=== PATIENT | female | born 1965 | race American Indian/Alaskan Native ===

== ENCOUNTER 2016-07-25 07:56 | Emergency (ER) | payer MEDICAID ==
[2016-07-25 08:14] VITALS: RESP 16; TEMP 97; BMI 28.7
--- NOTE | 2016-07-25 08:26 | ED PDOC ---
HPI: General Adult Time Seen by Provider: 07/25/16 08:21 Chief Complaint (Nursing): Abdominal Pain Chief Complaint (Provider): abdominal pain History Per: Patient History/Exam Limitations: no limitations Additional Complaint(s): 51yo female w/ Hx GERD, gastritis, taking Prilosec with intermittent upper abdominal pain over 2 months. Also reports watery, non-bloody diarrhea which typically occurs 20 minutes after a meal. Denies Hx abdominal surgery, endoscopy. Pain is not radiating to the back or chest. PMD: Vlad Past Medical History Reviewed: Historical Data, Nursing Documentation, Vital Signs Vital Signs: Last Vital Signs Temp 97.0 F L 07/25/16 08:13 Pulse 82 07/25/16 08:52 Resp 16 07/25/16 08:52 BP 142/99 H 07/25/16 08:52 Pulse Ox 100 07/25/16 08:52 - Medical History PMH: Asthma, Back Problems, Gastritis, GERD, HTN, Chronic Pain (Sciatica) Denies: Chronic Kidney Disease - Surgical History Surgical History: No Surg Hx - Family History Family History: States: Hypertension - Social History Current smoker - smoking cessation education provided: No Alcohol: Occasional - Immunization History Hx Tetanus Toxoid Vaccination: No Hx Influenza Vaccination: No Hx Pneumococcal Vaccination: No - Home Medications Home Medications: Ambulatory Orders Medication Instructions Recorded Lisinopril [Zestril] 20 mg PO DAILY 11/05/14 Albuterol HFA [Ventolin HFA 90 2 puff IH [id number] #1 puff 01/08/15 mcg/actuation (8 g)] Fluticasone/Salmeterol 100/50 1 puff INH BID #1 puff 03/20/15 [Advair Diskus 100/50] Albuterol Sulfate [Proair Hfa] 0.09 mg IH Q6H PRN #2 inh 01/31/16 Albuterol HFA [Ventolin HFA 90 1 - 2 puff IH Q4H PRN #1 bottle 02/15/16 mcg/actuation (8 g)] Hydrocortisone 2.5% 1 apful TP BID 5 Days 07/25/16 Ondansetron [Zofran] 4 mg PO Q6H PRN #10 tab 07/25/16 Ranitidine HCl [Zantac] 150 mg PO BID #20 tablet 07/25/16 - Allergies Allergies/Adverse Reactions: Allergies Allergy/AdvReac Type Severity Reaction Status Date / Time mold Allergy URTICARIA Verified 01/02/16 07:24 dust Allergy URTICARIA Uncoded 10/11/15 10:25 Review of Systems ROS Statement: Except As Marked, All Systems Reviewed And Found Negative Constitutional: Negative for: Fever Cardiovascular: Negative for: Chest Pain Respiratory: Positive for: Cough Gastrointestinal: Positive for: Nausea, Abdominal Pain, Diarrhea. Negative for : Vomiting Musculoskeletal: Negative for: Back Pain Physical Exam - Reviewed Nursing Documentation Reviewed: Yes Vital Signs Reviewed: Yes - Physical Exam Appears: Positive for: Well, Non-toxic, No Acute Distress Head Exam: Positive for: ATRAUMATIC, NORMAL INSPECTION, NORMOCEPHALIC Skin: Positive for: Warm, Dry Eye Exam: Positive for: EOMI, PERRL Cardiovascular/Chest: Positive for: Regular Rate, Rhythm Respiratory: Positive for: Other (mildly diminished breath sounds). Negative for: Rales, Rhonchi, Wheezing Gastrointestinal/Abdominal: Positive for: Soft, Tenderness (mid abdomen & right upper quadrant). Negative for: Mass, Guarding, Rebound - Laboratory Results Result Diagrams: 07/25/16 09:04 07/25/16 09:04 - ECG O2 Sat by Pulse Oximetry: 99 Medical Decision Making Medical Decision Makin Will rule out gallstone. US Abdomen, CXR, Labs, IV Fluids, Bentyl, Toradol, Zofran ordered. 0950 US Abdomen IMPRESSION: Multiple probable small right renal cysts are evident measuring up to 1.0 cm in the midpole. Echogenic focus within the midpole measuring approximately 6 mm presumed to reflect nonobstructing calculus. No hydronephrosis. Borderline hepatomegaly. 1215 CT Abd/pel IMPRESSION: No acute findings related to/accounting for the clinical presentation. No significant interval change compared to the prior examination(s). 1220 Reevaluation: Patient feeling better. Will discharge with Zantac. Discussed CT, US and lab findings. Follow up with PMD. Disposition - Clinical Impression Clinical Impression: Abdominal pain, Asthma, Eczema - Disposition Referrals: Bolivar Hernandez MD [Staff Provider] - Disposition: Routine/Home Disposition Time: 12:20 Condition: STABLE Additional Instructions: See GI doctor for further testing. Return to ER for any new or worsening symptoms/ Prescriptions: Hydrocortisone 2.5% 1 apful TP BID 5 Days Ondansetron [Zofran] 4 mg PO Q6H PRN #10 tab PRN Reason: Nausea/Vomiting Ranitidine HCl [Zantac] 150 mg PO BID #20 tablet Instructions: Asthma (ED), Acute Abdominal Pain (ED) Forms: [employer] (Spanish), [facility] ED School/Work Excuse Additional Comments - Additional Comments Additional Comments: Scribe Attestation Documented by Musa Marino acting as a scribe for Virginia Weathers DO. Provider Attestation: All medical record entries made by the Scribe were at my direction and personally dictated by me. I have reviewed the chart and agree that the record accurately reflects my personal performance of the history, physical exam, medical decision making, and the department course for this patient. I have also personally directed, reviewed, and agree with the discharge instructions and disposition.
[2016-07-25] MEDS ORDERED: Sodium Chloride 0.9% 1,000 ML IV STA (08:27)
[2016-07-25] MEDS ORDERED: Albuterol-Ipratrop 3 mg / 0.5 (3 ml) UD INH STA (08:27)
[2016-07-25 08:52] VITALS: BP 142/99; PULSE 82
[2016-07-25 09:06] LABS: RBC URINE 5 /hpf (0-3); URINE BILIRUBIN NEGATIVE (NEGATIVE); URINE BLOOD NEGATIVE (NEGATIVE); URINE COLOR YELLOW (YELLOW); URINE GLUCOSE (UA) NEG (Normal); URINE KETONE NEGATIVE (NEGATIVE); URINE LEUKOCYTE ESTERASE NEG Leu/uL (Negative); URINE PROTEIN 30 mg/dL (NEGATIVE); URINE UROBILINOGEN 0.2-1.0 mg/dL (0.2-1.0); WBC URINE 1 /hpf (0-5)
[2016-07-25 09:08] LABS: BASO % 0.5 % (0.0-2.0); EOS # 0.1 K/uL (0.0-0.7); EOS % 1.7 % (0.0-4.0); HEMATOCRIT 36.2 % (34.0-47.0); LYMPH # 2.1 K/uL (1.0-4.3); LYMPH % 38.1 % (20.0-40.0); MEAN CELL VOLUME 84.4 fl (81.0-99.0); MEAN CORPUSCULAR HEMOGLOBIN 28.1 pg (27.0-31.0); MEAN CORPUSCULAR HGB CONC 33.4 g/dL (33.0-37.0); MEAN PLATELET VOLUME 7.3 fl (7.2-11.7); MONO # 0.5 K/uL (0.0-0.8); MONO % 9.2 % (0.0-10.0); NEUT # 2.8 K/uL (1.8-7.0); NEUT % 50.5 % (50.0-75.0); NRBC % 0.1 % (0.0-0.0); WHITE BLOOD COUNT 5.5 K/uL (4.8-10.8)
[2016-07-25] MEDS ORDERED: Albuterol-Ipratrop 3 mg / 0.5 (3 ml) UD ONE (09:24)
[2016-07-25 09:39] LABS: ALB/GLOB RATIO 1.1 (1.0-2.1); ALKALINE PHOSPHATASE 116 U/L (38-126); ALT/SGPT 58 U/L (9-52); AST/SGOT 38 U/L (14-36); BILIRUBIN,TOTAL 0.8 mg/dl (0.2-1.3); BLOOD UREA NITROGEN 16 mg/dl (7-17); CALCIUM 9.6 mg/dL (8.4-10.2); CARBON DIOXIDE 29 mmol/L (22-30); CHLORIDE 101 mmol/L (98-107); GFR AFRICAN-AMERICAN > 60; GLUCOSE,RANDOM 77 mg/dL (65-105); LIPASE 75 U/L (23-300); POTASSIUM 3.5 MMOL/L (3.6-5.0); SODIUM 141 mmol/l (132-148); TOTAL PROTEIN 8.5 G/DL (6.3-8.2)
--- NOTE | 2016-07-25 10:06 | US ---
HISTORY: mid and upper abd pain COMPARISON: CT abdomen and pelvis with contrast performed 01/02/16 TECHNIQUE: Sonographic evaluation of the abdomen. FINDINGS: LIVER: Measures 18.6 cm in sagittal dimension and appears within normal limits of shape and echotexture. No focal hepatic mass identified. The main portal vein appears patent with normal directional flow. No intrahepatic bile duct dilatation. GALLBLADDER: No gallstones. No gallbladder wall thickening. Negative sonographic Zhong's sign as assessed by the gasser machine operator. COMMON BILE DUCT: Measures 3 mm. PANCREAS: Not well visualized. RIGHT KIDNEY: Measures 10.8 x 5.3 x 4.4 cm. No hydronephrosis. Multiple probable cysts are evident measuring up to 1.0 cm in the midpole. Echogenic focus within the midpole measuring approximately 6 mm presumed to reflect calculus. LEFT KIDNEY: Measures 12.0 x 4.9 x 5.8 cm. No obstructing calculus or hydronephrosis evident. SPLEEN: Measures approximately 8.2 cm. AORTA: Limited views appear unremarkable. IVC: Limited views appear unremarkable. OTHER FINDINGS: None. IMPRESSION: Multiple probable small right renal cysts are evident measuring up to 1.0 cm in the midpole. Echogenic focus within the midpole measuring approximately 6 mm presumed to reflect nonobstructing calculus. No hydronephrosis. Borderline hepatomegaly.
[2016-07-25] MEDS ORDERED: Iohexol 300 100 ML IJ ONE (10:43)
[2016-07-25] MEDS ORDERED: Sodium Chloride 0.9% 50 ML IV ONE (10:43)
[2016-07-25] MEDS ORDERED: Alum-Mag Hydrox-Simethicone Susp (30 mL) PO ONE (10:44)
--- NOTE | 2016-07-25 11:34 | CT ---
PROCEDURE: CT Abdomen and Pelvis with contrast HISTORY: R sided abdominal pain COMPARISON: 01/02/2016. TECHNIQUE: Contrast dose: 95 cc Omnipaque 300. Radiation dose: Total exam DLP = 1006.90 mGy-cm. This CT exam was performed using one or more of the following dose reduction techniques: Automated exposure control, adjustment of the mA and/or kV according to patient size, and/or use of iterative reconstruction technique. FINDINGS: LOWER THORAX: Unremarkable. LIVER: Hepatomegaly, hepatic steatosis. GALLBLADDER AND BILE DUCTS: Unremarkable. PANCREAS: Unremarkable. No gross lesion or ductal dilatation. SPLEEN: Unremarkable. ADRENALS: Unremarkable. No mass. KIDNEYS AND URETERS: Unremarkable. No hydronephrosis. No solid mass. Incidental finding(s): Stable sub cm cyst midpole region right kidney. VASCULATURE: Unremarkable. No aortic aneurysm. BOWEL: Unremarkable. No obstruction. No gross mural thickening. Diverticulosis without an acute inflammatory component or other associated pathologic process. APPENDIX: Normal appendix. PERITONEUM: Unremarkable. No free fluid. No free air. LYMPH NODES: Unremarkable. No enlarged lymph nodes. BLADDER: Unremarkable. REPRODUCTIVE: Unremarkable. BONES: No acute fracture. OTHER FINDINGS: None. IMPRESSION: No acute findings related to/accounting for the clinical presentation. No significant interval change compared to the prior examination(s).
[2016-07-25 12:25] VITALS: O2SAT 99
--- NOTE | 2016-07-25 13:53 | RAD ---
HISTORY: SOB COMPARISON: Chest x-ray performed 02/15/16 TECHNIQUE: Chest PA and lateral FINDINGS: Examination limited by habitus. LUNGS: No focal consolidation. Please note that chest x-ray has limited sensitivity for the detection of pulmonary masses. PLEURA: No significant pleural effusion identified. No definite pneumothorax . CARDIOVASCULAR: Heart size appears within normal limits. OSSEOUS STRUCTURES: Degenerative changes of the spine. VISUALIZED UPPER ABDOMEN: Unremarkable. OTHER FINDINGS: None. IMPRESSION: No focal consolidation, significant pleural effusion, or definite pneumothorax identified.
== END 2016-07-25 12:35 | disposition home or self-care (01) ==
LOC: H.ER 07:56
DX: R10.9 Unspecified abdominal pain (principal); J45.909 Unspecified asthma, uncomplicated; R11.2 Nausea with vomiting, unspecified; L30.9 Dermatitis, unspecified; N28.1 Cyst of kidney, acquired; R19.7 Diarrhea, unspecified; K21.9 Gastro-esophageal reflux disease without esophagitis

== ENCOUNTER 2016-11-07 12:13 | Emergency (ER) | payer MEDICAID ==
[2016-11-07 12:16] VITALS: BMI 28.7
[2016-11-07 12:26] VITALS: BP 141/82; PULSE 69; RESP 18; TEMP 97; O2SAT 100
--- NOTE | 2016-11-07 12:47 | ED PDOC ---
HPI: General Adult Time Seen by Provider: 11/07/16 12:27 Chief Complaint (Nursing): Cough, Cold, Congestion Chief Complaint (Provider): Dry cough History Per: Patient History/Exam Limitations: no limitations Onset/Duration Of Symptoms: Days (1 month) Current Symptoms Are (Timing): Still Present Additional Complaint(s): Alba Costello is a 51 year old female, with a past medical history of hypertension and asthma, who presents to the emergency department complaining of dry cough onset for 3 months. Patient reports a dry cough post nasal drip and is requesting a refill of promethazine with codeine. Patient is trying to see an ENT but is having trouble with insurance. She denies any fever and chills. No further medical complaints. PMD: Chaitanya Chu Past Medical History Reviewed: Historical Data, Nursing Documentation, Vital Signs Vital Signs: Last Vital Signs Temp 97.0 F L 11/07/16 12:24 Pulse 69 11/07/16 12:24 Resp 18 11/07/16 12:24 BP 141/82 11/07/16 12:24 Pulse Ox 100 11/07/16 12:55 - Medical History PMH: Asthma, Back Problems, Gastritis, GERD, HTN, Chronic Pain (Sciatica) Denies: Chronic Kidney Disease - Family History Family History: States: Hypertension - Social History Current smoker - smoking cessation education provided: No Alcohol: Occasional Drugs: Denies - Immunization History Hx Tetanus Toxoid Vaccination: No Hx Influenza Vaccination: No Hx Pneumococcal Vaccination: No - Home Medications Home Medications: Ambulatory Orders Medication Instructions Recorded Lisinopril [Zestril] 20 mg PO DAILY 11/05/14 Albuterol HFA [Ventolin HFA 90 2 puff IH [id number] #1 puff 01/08/15 mcg/actuation (8 g)] Fluticasone/Salmeterol 100/50 1 puff INH BID #1 puff 03/20/15 [Advair Diskus 100/50] Albuterol Sulfate [Proair Hfa] 0.09 mg IH Q6H PRN #2 inh 01/31/16 Albuterol HFA [Ventolin HFA 90 1 - 2 puff IH Q4H PRN #1 bottle 02/15/16 mcg/actuation (8 g)] Hydrocortisone 2.5% 1 apful TP BID 5 Days 07/25/16 Ondansetron [Zofran] 4 mg PO Q6H PRN #10 tab 07/25/16 Ranitidine HCl [Zantac] 150 mg PO BID #20 tablet 07/25/16 Fluticasone Propionate [Flonase] 1 spr NS BID #1 spr 11/07/16 Guaifenesin/Pseudoephedrne HCl 1 tab PO DAILY PRN #30 ter 11/07/16 [Mucinex D 600 mg-60 mg] Promethazine HCl/Codeine 5 ml PO HS #80 ml 11/07/16 [Prometh-Codein 6.25-10 mg/5 ml] - Allergies Allergies/Adverse Reactions: Allergies Allergy/AdvReac Type Severity Reaction Status Date / Time mold Allergy URTICARIA Verified 01/02/16 07:24 dust Allergy URTICARIA Uncoded 10/11/15 10:25 Review of Systems ROS Statement: Except As Marked, All Systems Reviewed And Found Negative Constitutional: Negative for: Fever, Chills Respiratory: Positive for: Cough (dry) Physical Exam - Reviewed Nursing Documentation Reviewed: Yes Vital Signs Reviewed: Yes - Physical Exam Appears: Positive for: Well, Non-toxic, No Acute Distress Head Exam: Positive for: ATRAUMATIC, NORMAL INSPECTION, NORMOCEPHALIC Skin: Positive for: Normal Color, Warm, Dry Eye Exam: Positive for: Normal appearance ENT: Positive for: Normal ENT Inspection Respiratory: Positive for: Normal Breath Sounds. Negative for: Respiratory Distress Neurologic/Psych: Positive for: Alert, Oriented - ECG O2 Sat by Pulse Oximetry: 100 (RA) Pulse Ox Interpretation: Normal Medical Decision Making Medical Decision Making: Initial Impression: Dry cough post nasal drip Initial Plan: --Duoneb 3mg/0.5 mg (3ml) UD --Peak flow pre/post TX --reevaluation Scribe Attestation: Documented by Rufus East, acting as a scribe for Pamella MACIAS. Provider Scribe Attestation: All medical record entries made by the Scribe were at my direction and personally dictated by me. I have reviewed the chart and agree that the record accurately reflects my personal performance of the history, physical exam, medical decision making, and the department course for this patient. I have also personally directed, reviewed, and agree with the discharge instructions and disposition. Disposition - Clinical Impression Clinical Impression: Cough - Patient ED Disposition Is Patient to be Admitted: No - Disposition Disposition: Routine/Home Disposition Time: 13:00 Condition: STABLE Prescriptions: Fluticasone Propionate [Flonase] 1 spr NS BID #1 spr Guaifenesin/Pseudoephedrne HCl [Mucinex D 600 mg-60 mg] 1 tab PO DAILY PRN #30 ter PRN Reason: congestion Promethazine HCl/Codeine [Prometh-Codein 6.25-10 mg/5 ml] 5 ml PO HS #80 ml Instructions: Upper Respiratory Infection (ED) Forms: [facility] (Eritrean)
[2016-11-07] MEDS ORDERED: Albuterol-Ipratrop 3 mg / 0.5 (3 ml) UD INH STA (12:51)
[2016-11-07] MEDS ORDERED: Albuterol-Ipratrop 3 mg / 0.5 (3 ml) UD ONE (13:03)
== END 2016-11-07 13:22 | disposition home or self-care (01) ==
LOC: H.ER 12:13
DX: J06.9 Acute upper respiratory infection, unspecified (principal); I10 Essential (primary) hypertension; K21.9 Gastro-esophageal reflux disease without esophagitis; G89.29 Other chronic pain

== ENCOUNTER 2016-11-21 09:24 | Emergency (ER) | payer MEDICAID ==
[2016-11-21 09:35] VITALS: BP 150/96; PULSE 70; RESP 20; TEMP 98.2; O2SAT 100
[2016-11-21] MEDS ORDERED: Albuterol-Ipratrop 3 mg / 0.5 (3 ml) UD INH STA (09:45)
--- NOTE | 2016-11-21 09:50 | ED PDOC ---
HPI: CCC, URI, Sore Throat Time Seen by Provider: 11/21/16 09:38 Chief Complaint (Nursing): Cough, Cold, Congestion Chief Complaint (Provider): coughing History Per: Patient History/Exam Limitations: no limitations Onset/Duration Of Symptoms: Intermittent Episodes, Other (x months) Current Symptoms Are (Timing): Still Present Sick Contacts (Context): None Associated Symptoms: Sore Throat (mild) Severity: Moderate Additional Complaint(s): 51yo female c/o ongoing intermittent cough which keeps her awake at night, denies hemoptysis, fever, weight loss or leg swelling. +mild sore throat but no orthopnea, chest pain or SOB. Also c/o ongoing left knee pain s/p arthroscopic surgery 05/27 via [facility]"- doesnt remember name. Denies new trauma, fever, swelling or inability to ambulate. Past Medical History Reviewed: Historical Data, Nursing Documentation, Vital Signs Vital Signs: Last Vital Signs Temp 98.2 F 11/21/16 09:35 Pulse 70 11/21/16 09:35 Resp 20 11/21/16 09:35 BP 150/96 H 11/21/16 09:35 Pulse Ox 100 11/21/16 09:52 - Medical History PMH: Asthma, Back Problems, Gastritis, GERD, HTN, Chronic Pain (Sciatica) Denies: Chronic Kidney Disease - Surgical History Other surgeries: knee - Family History Family History: States: Unknown Family Hx, Hypertension - Living Arrangements Living Arrangements: With Family - Social History Current smoker - smoking cessation education provided: No (quit 6yrs ago) Drugs: Denies - Immunization History Hx Tetanus Toxoid Vaccination: No Hx Influenza Vaccination: No Hx Pneumococcal Vaccination: No - Home Medications Home Medications: Ambulatory Orders Medication Instructions Recorded Lisinopril [Zestril] 20 mg PO DAILY 11/05/14 Albuterol HFA [Ventolin HFA 90 2 puff IH [id number] #1 puff 01/08/15 mcg/actuation (8 g)] Fluticasone/Salmeterol 100/50 1 puff INH BID #1 puff 03/20/15 [Advair Diskus 100/50] Albuterol Sulfate [Proair Hfa] 0.09 mg IH Q6H PRN #2 inh 01/31/16 Albuterol HFA [Ventolin HFA 90 1 - 2 puff IH Q4H PRN #1 bottle 02/15/16 mcg/actuation (8 g)] Hydrocortisone 2.5% 1 apful TP BID 5 Days 07/25/16 Ondansetron [Zofran] 4 mg PO Q6H PRN #10 tab 07/25/16 Ranitidine HCl [Zantac] 150 mg PO BID #20 tablet 07/25/16 Fluticasone Propionate [Flonase] 1 spr NS BID #1 spr 11/07/16 Guaifenesin/Pseudoephedrne HCl 1 tab PO DAILY PRN #30 ter 11/07/16 [Mucinex D 600 mg-60 mg] Promethazine HCl/Codeine 5 ml PO HS #80 ml 11/07/16 [Prometh-Codein 6.25-10 mg/5 ml] Albuterol 0.083% [Albuterol 0.083% 2.5 mg IH Q4 PRN #20 neb 11/21/16 Inhal Aranza (2.5 mg/3 ml) UD] guaiFENesin [Robitussin] 100 mg PO Q6 PRN #100 ml 11/21/16 - Allergies Allergies/Adverse Reactions: Allergies Allergy/AdvReac Type Severity Reaction Status Date / Time mold Allergy URTICARIA Verified 01/02/16 07:24 dust Allergy URTICARIA Uncoded 10/11/15 10:25 Review of Systems ROS Statement: Except As Marked, All Systems Reviewed And Found Negative Constitutional: Negative for: Fever, Chills ENT: Positive for: Throat Pain. Negative for: Ear Discharge, Nose Discharge, Throat Swelling Cardiovascular: Negative for: Chest Pain, Palpitations Respiratory: Positive for: Cough. Negative for: Shortness of Breath, Hemoptysis , Sputum, Wheezing Gastrointestinal: Negative for: Nausea, Vomiting, Abdominal Pain Genitourinary Female: Negative for: Dysuria, Frequency Musculoskeletal: Positive for: Leg Pain. Negative for: Neck Pain, Shoulder Pain , Arm Pain Skin: Negative for: Rash, Lesions, Bruising Neurological: Negative for: Weakness, Numbness, Altered Mental Status Psych: Negative for: Anxiety Physical Exam - Reviewed Nursing Documentation Reviewed: Yes Vital Signs Reviewed: Yes - Physical Exam Appears: Positive for: Well Head Exam: Positive for: ATRAUMATIC, NORMAL INSPECTION, NORMOCEPHALIC Skin: Positive for: Normal Color, Warm, DRY Eye Exam: Positive for: EOMI, Normal appearance, PERRL ENT: Positive for: Pharyngeal Erythema. Negative for: Tonsillar Swelling Neck: Positive for: Normal, Painless ROM Cardiovascular/Chest: Positive for: Regular Rate, Rhythm Respiratory: Positive for: Normal Breath Sounds. Negative for: Wheezing, Respiratory Distress Gastrointestinal/Abdominal: Positive for: Soft Back: Positive for: Normal Inspection Extremity: Positive for: Normal ROM, Other (FROM knees, nontender) Neurologic/Psych: Positive for: Alert, Oriented. Negative for: Motor/Sensory Deficits - ECG O2 Sat by Pulse Oximetry: 100 Pulse Ox Interpretation: Normal - Radiology X-Ray: Read By Radiologist X-Ray Interpretation: No Acute Disease Medical Decision Making Medical Decision Making: Medication review, patient taking lisinopril per her report- possible contribution to cough, needs new BP medicaiton. Improved in ED, no resp distress, cough improved after duoneb. Rx robitussin and albuterol, followup PMD for new BP med. Disposition - Clinical Impression Clinical Impression: Cough due to REJI inhibitor - Patient ED Disposition Is Patient to be Admitted: No Counseled Patient/Family Regarding: Studies Performed, Diagnosis, Need For Followup, Rx Given - Disposition Referrals: Chaitanya Chu MD [Staff Provider] - Disposition: Routine/Home Disposition Time: 10:55 Condition: STABLE Additional Instructions: See your primary doctor to discuss a possible new blood pressure medication given your experience of cough while taking lisinopril. Return to ER for any worse or new symptoms. Prescriptions: Albuterol 0.083% [Albuterol 0.083% Inhal Aranza (2.5 mg/3 ml) UD] 2.5 mg IH Q4 PRN #20 neb PRN Reason: Wheezing guaiFENesin [Robitussin] 100 mg PO Q6 PRN #100 ml PRN Reason: Cough Instructions: Chronic Cough (ED) Forms: [employer] (German), [facility] ED School/Work Excuse
--- NOTE | 2016-11-21 10:21 | RAD ---
HISTORY: cough COMPARISON: No prior. TECHNIQUE: Chest PA and lateral FINDINGS: LUNGS: No active pulmonary disease. PLEURA: No significant pleural effusion identified. No pneumothorax apparent. CARDIOVASCULAR: Normal. OSSEOUS STRUCTURES: No significant abnormalities. VISUALIZED UPPER ABDOMEN: Normal. OTHER FINDINGS: None. IMPRESSION: No active disease.
== END 2016-11-21 11:29 | disposition home or self-care (01) ==
LOC: H.ER 09:24
DX: T46.4X5A Adverse effect of angiotensin-converting-enzyme inhibitors, initial encounter (principal); G89.29 Other chronic pain; I10 Essential (primary) hypertension; J45.909 Unspecified asthma, uncomplicated; K21.9 Gastro-esophageal reflux disease without esophagitis

== ENCOUNTER 2016-12-27 09:52 | Emergency (ER) | payer MEDICAID ==
[2016-12-27 10:07] VITALS: BP 149/94; PULSE 93; RESP 22; TEMP 98.4; O2SAT 100
--- NOTE | 2016-12-27 10:56 | ED PDOC ---
HPI: General Adult Time Seen by Provider: 12/27/16 10:06 Chief Complaint (Nursing): Cough, Cold, Congestion History Per: Patient Additional Complaint(s): Dry cough x 4 months. Pt. states cough is worse at night. Reports that she is scheduled to see a music librarian on 01/18/2017. States that she is usually prescribed Promethazine/Codeine. Has already seen ENT for the cough and was told that this is likely due to GERD or post nasal drip. Denies hemoptysis, chest pain, SOB, fever, recent travel, palpitations. Past Medical History Reviewed: Historical Data, Nursing Documentation, Vital Signs Vital Signs: Last Vital Signs Temp 98.4 F 12/27/16 10:06 Pulse 93 H 12/27/16 10:06 Resp 22 12/27/16 10:06 BP 149/94 H 12/27/16 10:06 Pulse Ox 100 12/27/16 10:06 - Medical History PMH: Asthma, Back Problems, Gastritis, GERD, HTN, Chronic Pain (Sciatica) Denies: Chronic Kidney Disease - Family History Family History: States: No Known Family Hx, Hypertension - Immunization History Hx Tetanus Toxoid Vaccination: No Hx Influenza Vaccination: No Hx Pneumococcal Vaccination: No - Home Medications Home Medications: Ambulatory Orders Medication Instructions Recorded Lisinopril [Zestril] 20 mg PO DAILY 11/05/14 Albuterol HFA [Ventolin HFA 90 2 puff IH [id number] #1 puff 01/08/15 mcg/actuation (8 g)] Fluticasone/Salmeterol 100/50 1 puff INH BID #1 puff 03/20/15 [Advair Diskus 100/50] Albuterol Sulfate [Proair Hfa] 0.09 mg IH Q6H PRN #2 inh 01/31/16 Albuterol HFA [Ventolin HFA 90 1 - 2 puff IH Q4H PRN #1 bottle 02/15/16 mcg/actuation (8 g)] Hydrocortisone 2.5% 1 apful TP BID 5 Days oin 07/25/16 Ondansetron [Zofran] 4 mg PO Q6H PRN #10 tab 07/25/16 Ranitidine HCl [Zantac] 150 mg PO BID #20 tablet 05/15/17 Fluticasone Propionate [Flonase] 1 spr NS BID #1 spr 11/07/16 Guaifenesin/Pseudoephedrne HCl 1 tab PO DAILY PRN #30 ter 11/07/16 [Mucinex D 600 mg-60 mg] Promethazine HCl/Codeine 5 ml PO HS #80 ml 11/07/16 [Prometh-Codein 6.25-10 mg/5 ml] Albuterol 0.083% [Albuterol 0.083% 2.5 mg IH Q4 PRN #20 neb 11/21/16 Inhal Aranza (2.5 mg/3 ml) UD] guaiFENesin [Robitussin] 100 mg PO Q6 PRN #100 ml 11/21/16 Albuterol HFA [Ventolin HFA 90 2 puff IH [id number] PRN #60 puff 12/27/16 mcg/actuation (8 g)] Promethazine DM [Phenergan DM 5 ml PO Q8H PRN #120 ml 12/27/16 Syrup] - Allergies Allergies/Adverse Reactions: Allergies Allergy/AdvReac Type Severity Reaction Status Date / Time mold Allergy URTICARIA Verified 12/27/16 10:12 dust Allergy URTICARIA Uncoded 10/11/15 10:25 Review of Systems ROS Statement: Except As Marked, All Systems Reviewed And Found Negative Respiratory: Positive for: Cough Physical Exam - Physical Exam Appears: Positive for: Well, Non-toxic, No Acute Distress Skin: Positive for: Normal Color, Warm. Negative for: Rash Eye Exam: Positive for: Normal appearance, EOMI, PERRL ENT: Positive for: Normal ENT Inspection. Negative for: Pharyngeal Erythema, Tonsillar Exudate, Tonsillar Swelling Neck: Positive for: Normal, Painless ROM Cardiovascular/Chest: Positive for: Regular Rate, Rhythm Respiratory: Positive for: Normal Breath Sounds. Negative for: Decreased Breath Sounds, Accessory Muscle Use, Respiratory Distress Gastrointestinal/Abdominal: Positive for: Normal Exam, Bowel Sounds, Soft. Negative for: Tenderness Neurologic/Psych: Positive for: Alert, Oriented - ECG O2 Sat by Pulse Oximetry: 100 - Progress ED Course And Treament: Pt. informed that she will not be given narcotic Rx. She subsequently requested Rx for Promethazine/DM. Disposition - Clinical Impression Clinical Impression: Cough - Patient ED Disposition Is Patient to be Admitted: No - Disposition Referrals: [facility] [Outside] Disposition: Routine/Home Disposition Time: 10:48 Condition: STABLE Additional Instructions: Follow up with music librarian on 01/18/2017 as previously scheduled without fail. Prescriptions: Albuterol HFA [Ventolin HFA 90 mcg/actuation (8 g)] 2 puff IH [id number] PRN #60 puff PRN Reason: Cough Promethazine DM [Phenergan DM Syrup] 5 ml PO Q8H PRN #120 ml PRN Reason: Cough Instructions: Acute Cough (ED) Print Language: AMHARIC
== END 2016-12-27 11:48 | disposition home or self-care (01) ==
LOC: H.ER 09:52
DX: R05 Cough (principal); G89.29 Other chronic pain; I10 Essential (primary) hypertension; K21.9 Gastro-esophageal reflux disease without esophagitis

== ENCOUNTER 2017-01-25 07:46 | Day surgery (SDC) | payer MEDICAID ==
[2017-01-25] MEDS ORDERED: methylPREDNISolone Depo 80 mg/ml Inj ONE (07:57)
[2017-01-25] MEDS ORDERED: Iohexol 300 10 ML ONE (07:58)
[2017-01-25] MEDS ORDERED: Lidocaine 1% Inj (20ml) ONE (07:58)
[2017-01-25] MEDS ORDERED: Bupivacaine HCl 0.25% PF (10 ml) Inj ONE (07:58)
[2017-01-25] MEDS ORDERED: Lactated Ringer's 1,000 ML IV ONE (09:00)
[2017-01-25 09:10] VITALS: BMI 28.2
[2017-01-25] MEDS ORDERED: Midazolam 2 MG/2 ML VIAL ONE (09:14)
[2017-01-25] MEDS ORDERED: Propofol 10 mg/ml Inj (20 ML) ONE (09:14)
[2017-01-25] MEDS ORDERED: Iohexol 300 10 ML IJ ONE (09:21)
[2017-01-25] MEDS ORDERED: methylPREDNISolone Depo 80 mg/ml Inj IM ONE (09:21)
[2017-01-25] MEDS ORDERED: Bupivacaine HCl 0.25% PF (10 ml) Inj IJ ONE (09:21)
[2017-01-25] MEDS ORDERED: Lidocaine 1% Inj (20ml) IJ ONE (09:21)
[2017-01-25] MEDS ORDERED: HYDROmorphone 0.5 mg/0.5 ml ISec ONE (09:39)
[2017-01-25] MEDS: HYDROmorphone 0.5 mg/0.5 ml ISec IVP PRN ×5 (09:43→10:43)
[2017-01-25] MEDS ORDERED: Oxycodone/Acetaminophen 5/325 mg Tab PO PRN (10:15)
[2017-01-25 12:15] VITALS: RESP 20
[2017-01-25 13:50] VITALS: PULSE 67
[2017-01-25 14:25] VITALS: BP 126/78; TEMP 97.7; O2SAT 96
--- NOTE | 2017-01-25 17:30 | RAD ---
PROCEDURE: Intraoperative Fluoroscopy. HISTORY: PAIN MANAGEMENT FINDINGS: Fluoroscopic assistance was provided for lumbar epidural injection Total fluoroscopic time (continuous mode) utilized during the procedure: 22.7 seconds. Total exam DLP: (mGy): 6.37.. Please refer
--- NOTE | 2017-01-26 16:49 | OP ---
PROCEDURE DATE: 01/25/2017 PREOPERATIVE DIAGNOSIS: Lumbar radiculopathy. POSTOPERATIVE DIAGNOSIS: Lumbar radiculopathy. PROCEDURE: Left L4-L5, L5-S1 transforaminal epidural steroid injection. SURGEON: Isma Hoskins MD. TYPE OF ANESTHESIA: Monitored anesthesia care. ANESTHESIA ADMINISTERED BY: Dr. Elkins. COMPLICATIONS: None. SPECIMEN: None. DESCRIPTION OF PROCEDURE: The risks, benefits, alternatives, and outcome data of the procedure were explained to the patient. After we had discussion of the procedure with the patient, including its risks, benefits, alternatives, outcome data, possibility of no effect or increased pain, the patient consented to the procedure. She denies any recent infection, bleeding tendencies, or being on anticoagulants, a decision was then made to proceed to the OR. The patient was placed on the fluoroscopy table in a prone position with two pillows underneath her abdomen. The back was prepped and draped in the usual sterile fashion and a sterile technique was adhered to during the entire procedure. The L4 and L5 vertebral levels were first identified in the anterior posterior view. Angulation towards the left at approximately 25 degrees was used to maximize the visualization of the left L4 and L5 pedicles. The skin overlying the 6 o'clock position of both pedicles was infiltrated with 1% lidocaine using a 25-gauge needle. Subsequently, a 22-gauge 5-inch spinal needle was then incrementally advanced under fluoroscopic guidance until the tip of the needle lay within the intravertebral foramen. After a satisfactory positioning of both needles, approximately 0.5 mL of Isovue contrast was injected, showing appropriate epidural and nerve root spread without any signs of CSF or intravenous involvement. At this point, approximately 3 mL of 0.25% Marcaine and Depo-Medrol mixture was injected. At the end of the case, the patient's back was cleaned and dried and bandages were applied. The patient was then transferred to the recovery area in good condition without any signs of WIRE WELDER toxicity or any neurological deficit. She will have a followup in our office in approximately 2 to 4 weeks. Isma Hoskins MD
== END 2017-01-25 15:10 | disposition home or self-care (01) ==
LOC: H.OPSURG 07:46
PROVIDERS: ATTEND Anesthesiology
DX: M54.16 Radiculopathy, lumbar region (principal); J45.909 Unspecified asthma, uncomplicated; Z87.891 Personal history of nicotine dependence; I10 Essential (primary) hypertension
CPT/HCPCS: 64483; 64484; J1040; J1170; J2250; J2405; J2704; J3010; J7120; Q9967

== ENCOUNTER 2017-03-16 12:48 | Emergency (ER) | payer MEDICAID ==
[2017-03-16 12:49] VITALS: BMI 28.2
[2017-03-16 13:20] VITALS: BP 132/93; PULSE 81; RESP 19; TEMP 98.4; O2SAT 100
--- NOTE | 2017-03-16 14:03 | ED PDOC ---
HPI: CCC, URI, Sore Throat Time Seen by Provider: 03/16/17 13:28 Chief Complaint (Nursing): ENT Problem History Per: Patient Additional Complaint(s): 51 yo F presents with sore throat x 2 days with R ear pain. Patient reports no fever. Otherwise: (-) cough, (-) rash, (-) URI symptoms, (-) SOB, (-) chest pain , (-) N/V/D, (-) abdominal pain, (-) flank pain, (-) urinary symptoms, (-) recent travel, (-) sick contacts. Past Medical History Vital Signs: Last Vital Signs Temp 98.4 F 03/16/17 13:17 Pulse 81 03/16/17 13:17 Resp 19 03/16/17 13:17 BP 132/93 H 03/16/17 13:17 Pulse Ox 100 03/16/17 14:03 - Medical History PMH: Asthma, Back Problems, Gastritis, GERD, HTN, Chronic Pain (Sciatica) Denies: Chronic Kidney Disease - Family History Family History: States: Hypertension - Immunization History Hx Tetanus Toxoid Vaccination: No Hx Influenza Vaccination: No Hx Pneumococcal Vaccination: No - Home Medications Home Medications: Ambulatory Orders Medication Instructions Recorded Lisinopril [Zestril] 20 mg PO DAILY 11/05/14 Fluticasone/Salmeterol 100/50 1 puff INH BID #1 puff 03/20/15 [Advair Diskus 100/50] Albuterol Sulfate [Proair Hfa] 0.09 mg IH Q6H PRN #2 inh 01/31/16 Hydrocortisone 2.5% 1 apful TP BID 5 Days oin 07/25/16 Promethazine HCl/Codeine 5 ml PO HS #80 ml 11/07/16 [Prometh-Codein 6.25-10 mg/5 ml] Albuterol HFA [Ventolin HFA 90 2 puff IH [id number] PRN #60 puff 12/27/16 mcg/actuation (8 g)] Promethazine DM [Phenergan DM 5 ml PO Q8H PRN #120 ml 12/27/16 Syrup] Ibuprofen [Motrin Tab] 600 mg PO QID PRN #20 tab 03/16/17 Penicillin VK [Penicillin VK Tab] 500 mg PO Q6H #80 tab 03/16/17 - Allergies Allergies/Adverse Reactions: Allergies Allergy/AdvReac Type Severity Reaction Status Date / Time mold Allergy URTICARIA Verified 03/16/17 13:16 dust Allergy URTICARIA Uncoded 03/16/17 13:16 Review of Systems Constitutional: Negative for: Fever, Chills, Weakness ENT: Positive for: Ear Pain, Throat Pain Cardiovascular: Negative for: Chest Pain, Palpitations, Orthopnea Respiratory: Negative for: Cough, Shortness of Breath, Wheezing Gastrointestinal: Negative for: Nausea, Vomiting, Abdominal Pain Musculoskeletal: Negative for: Neck Pain, Shoulder Pain, Back Pain Skin: Negative for: Rash, Lesions, Jaundice Neurological: Negative for: Weakness, Numbness, Dizziness Physical Exam - Physical Exam Comments: GENERAL APPEARANCE: Patient is awake, alert, oriented x 3, in no acute distress. Patient speaking in full sentences, no drooling. SKIN: Warm, dry; (-) cyanosis, (-) rash. (-) Decubitus Ulcer EYES: (-) conjunctival pallor, (-) scleral icterus, (-) conjunctival hemorrhage. ENMT: Mucous membranes moist. TMs: (-) erythema. Airway patent: (-) stridor. Pharynx: (+) erythema, (-) exudate. NECK: (-) tenderness, (-) stiffness, (-) meningismus, (-) lymphadenopathy. CHEST AND RESPIRATORY: (-) accessory muscle use. Lungs: (-) rales, (-) rhonchi, (-) wheezes, (-) rub; breath sounds equal bilaterally. HEART AND CARDIOVASCULAR: (-) irregularity; (-) murmur, (-) gallop, (-) rub. ABDOMEN AND GI: Soft; (-) tenderness, (-) guarding; (-) organomegaly; (-) mass ; (-) CVA tenderness. EXTREMITIES: (-) deformity; (-) cellulitis, (-) lymphangitis; (-) subungual hemorrhage; (-) edema. NEURO AND PSYCH: Mental status as above; (-) focal findings. - ECG O2 Sat by Pulse Oximetry: 100 Medical Decision Making Medical Decision Makin yo F presents with sore throat x 2 days with R ear pain. Patient refusing rapid strep test. Is requesting for an antibiotic prescription only and pain medication at this time. Dx of pharyngitis d/w the patient. Instructed to follow up with primary care physician in 1-2 days without fail. Advised to take medication as prescribed. Return to the emergency room at any time for any new or worsening symptoms. Patient states she fully agrees with and understands discharge instructions. States that she agrees with the plan and disposition. Verbalized and repeated discharge instructions and plan. I have given the patient opportunity to ask any additional questions. Disposition - Clinical Impression Clinical Impression: Pharyngitis - Patient ED Disposition Is Patient to be Admitted: No Counseled Patient/Family Regarding: Diagnosis, Need For Followup, Rx Given - Disposition Disposition: Routine/Home Disposition Time: 14:01 Condition: STABLE Additional Instructions: Thank you for letting us take care of you today. You were treated for pharyngitis. The emergency medical care you received today was directed at your acute symptoms. If you were prescribed any medication, please fill it and take as directed. It may take several days for your symptoms to resolve. Return to the Emergency Department if your symptoms worsen, do not improve, or if you have any other problems. Please contact your doctor in 2 days for re-evaluation and follow up. Bring any paperwork you were given at discharge with you along with any medications you are taking to your follow up visit. Our treatment cannot replace ongoing medical care by a primary care provider (PCP) outside of the emergency department. Thank you for allowing the [facility] team to be part of your care today. Prescriptions: Ibuprofen [Motrin Tab] 600 mg PO QID PRN #20 tab PRN Reason: Pain, Moderate (4-7) Penicillin VK [Penicillin VK Tab] 500 mg PO Q6H #80 tab Instructions: Pharyngitis (ED) Forms: [employer] (Danish), [facility] ED School/Work Excuse Print Language: PORTUGUESE - PA / WAREHOUSE MAN / Resident Statement MD/DO has reviewed & agrees with the documentation as recorded.
== END 2017-03-16 15:31 | disposition home or self-care (01) ==
LOC: H.ER 12:48
DX: J02.9 Acute pharyngitis, unspecified (principal); G89.29 Other chronic pain; I10 Essential (primary) hypertension; J45.909 Unspecified asthma, uncomplicated; K21.9 Gastro-esophageal reflux disease without esophagitis

== ENCOUNTER 2017-05-26 18:13 | Emergency (ER) | payer BC, MEDICAID ==
[2017-05-26 18:13] VITALS: BMI 29.8
[2017-05-26 18:25] VITALS: BP 120/84; PULSE 95; RESP 20; TEMP 98.5; O2SAT 97
[2017-05-26] MEDS ORDERED: MethylPREDNISolone 40 mg Vial IM STA (18:35)
--- NOTE | 2017-05-26 19:39 | ED PDOC ---
Lower Extremity Pain/Injury Time Seen by Provider: 05/26/17 18:33 Chief Complaint (Nursing): Lower Extremity Problem/Injury Chief Complaint (Provider): Lower Extremity Problem/Injury History Per: Patient History/Exam Limitations: no limitations Onset/Duration Of Symptoms: Days Current Symptoms Are (Timing): Still Present Additional Complaint(s): 52 year old female with a history of sciatica presents to the ED complaining of right buttock pain radiating down her right leg. She regularly follows up with pain management doctor and her appointment is Monday. Patient is here requesting a dose of anti inflammatory medicine for pain. PMD: Chaitanya Chu Past Medical History Reviewed: Historical Data, Nursing Documentation, Vital Signs Vital Signs: Last Vital Signs Temp 98.5 F 05/26/17 18:24 Pulse 95 H 05/26/17 18:24 Resp 20 05/26/17 18:24 BP 120/84 05/26/17 18:24 Pulse Ox 97 05/26/17 18:24 - Medical History PMH: Asthma, Back Problems, Gastritis, GERD, HTN, Chronic Pain (Sciatica) Denies: Chronic Kidney Disease - Surgical History Surgical History: No Surg Hx - Family History Family History: States: Hypertension - Immunization History Hx Tetanus Toxoid Vaccination: No Hx Influenza Vaccination: No Hx Pneumococcal Vaccination: No - Home Medications Home Medications: Ambulatory Orders Medication Instructions Recorded Lisinopril [Zestril] 20 mg PO DAILY 11/05/14 Fluticasone/Salmeterol 100/50 1 puff INH BID #1 puff 03/20/15 [Advair Diskus 100/50] Albuterol Sulfate [Proair Hfa] 0.09 mg IH Q6H PRN #2 inh 01/31/16 Hydrocortisone 2.5% 1 apful TP BID 5 Days oin 07/25/16 Promethazine HCl/Codeine 5 ml PO HS #80 ml 11/07/16 [Prometh-Codein 6.25-10 mg/5 ml] Albuterol HFA [Ventolin HFA 90 2 puff IH [id number] PRN #60 puff 12/27/16 mcg/actuation (8 g)] Promethazine DM [Phenergan DM 5 ml PO Q8H PRN #120 ml 12/27/16 Syrup] Ibuprofen [Motrin Tab] 600 mg PO QID PRN #20 tab 03/16/17 - Allergies Allergies/Adverse Reactions: Allergies Allergy/AdvReac Type Severity Reaction Status Date / Time mold Allergy URTICARIA Verified 05/26/17 18:23 dust Allergy URTICARIA Uncoded 03/16/17 13:16 Review of Systems ROS Statement: Except As Marked, All Systems Reviewed And Found Negative Musculoskeletal: Positive for: Leg Pain, Other (right buttock pain) Physical Exam - Reviewed Nursing Documentation Reviewed: Yes Vital Signs Reviewed: Yes - Physical Exam Comments: GENERAL APPEARANCE: Patient is awake, alert, oriented x 3, in mild painful distress, can ambulate. SKIN: Warm, dry; (-) cyanosis. EYES: (-) conjunctival pallor. ENMT: Mucous membranes moist. NECK: (-) tenderness, (-) stiffness, (-) lymphadenopathy. CHEST AND RESPIRATORY: (-) rales, (-) rhonchi, (-) wheezes; breath sounds equal bilaterally. HEART AND CARDIOVASCULAR: (-) irregularity; (-) murmur, (-) gallop. ABDOMEN AND GI: Soft; (-) tenderness; (-) palpable mass. BACK: (-) deformity EXTREMITIES: (-) deformity (+) tenderness to right buttock, (-) midline tenderness. Distal pulses good bilaterally. NEURO AND PSYCH: Mental status as above. Intact sensation bilaterally; normal strength in extension of the knees, plantar and dorsiflexion of the toes. DTRs symmetric. - ECG O2 Sat by Pulse Oximetry: 97 (RA) Pulse Ox Interpretation: Normal Medical Decision Making Medical Decision Making: Time: 18:35 Initial Plan: --Prednisolone 125 mg IM --Toradol 60 mg IM On reevaluation, patient reports significant improvement in pain. She is ambulatory in ER with steady gait. Advised to follow up with pain management doctor in 1-2 days without fail. Advised to take naprosyn for pain. Return to the emergency room at any time for any new or worsening symptoms. Patient states she fully agrees with and understands discharge instructions. States that she agrees with the plan and disposition. Verbalized and repeated discharge instructions and plan. I have given the patient opportunity to ask any additional questions. ---- Scribe Attestation: Documented by Allison Zuniga, acting as a scribe for Brit Molina PA-C Provider Scribe Attestation: All medical record entries made by the Scribe were at my direction and personally dictated by me. I have reviewed the chart and agree that the record accurately reflects my personal performance of the history, physical exam, medical decision making, and the department course for this patient. I have also personally directed, reviewed, and agree with the discharge instructions and disposition. Disposition - Clinical Impression Clinical Impression: Sciatica - Patient ED Disposition Is Patient to be Admitted: No Counseled Patient/Family Regarding: Diagnosis, Need For Followup - Disposition Disposition: Routine/Home Disposition Time: 19:30 Condition: STABLE Additional Instructions: Thank you for letting us take care of you today. You were treated for sciatica. The emergency medical care you received today was directed at your acute symptoms. Take naprosyn as needed for pain. It may take several days for your symptoms to resolve. Return to the Emergency Department if your symptoms worsen , do not improve, or if you have any other problems. Please contact your pain management doctor in 2 days for re-evaluation and follow up. Bring any paperwork you were given at discharge with you along with any medications you are taking to your follow up visit. Our treatment cannot replace ongoing medical care by a primary care provider (PCP) outside of the emergency department. Thank you for allowing the [facility] team to be part of your care today. Instructions: Sciatica (DC) Forms: [employer] (Gambian), [facility] ED School/Work Excuse - PA / MEDICAL INSURANCE CLAIMS PROCESSOR / Resident Statement MD/DO has reviewed & agrees with the documentation as recorded.
== END 2017-05-26 20:49 | disposition home or self-care (01) ==
LOC: H.ER 18:13
DX: M54.31 Sciatica, right side (principal); G89.29 Other chronic pain; I10 Essential (primary) hypertension
CPT/HCPCS: 96372; 99283; J1885; J2920

== ENCOUNTER 2017-05-29 07:01 | Day surgery (SDC) | payer BC, MEDICAID ==
[2017-05-26 08:52] VITALS: BMI 29.8
[2017-05-29 07:41] VITALS: RESP 18
[2017-05-29] MEDS ORDERED: Iohexol 300 10 ML ONE (07:43)
[2017-05-29] MEDS ORDERED: Bupivacaine HCl 0.25% PF (10 ml) Inj ONE (07:43)
[2017-05-29] MEDS ORDERED: Bupivacaine HCl 0.5% PF (10 ml) Inj ONE (07:43)
[2017-05-29] MEDS ORDERED: MethylPREDNISolone Depo 40 mg/ml Inj ONE (07:43)
[2017-05-29] MEDS ORDERED: Lidocaine 1% Inj (20ml) ONE (07:44)
[2017-05-29] MEDS ORDERED: Propofol 10 mg/ml Inj (20 ML) ONE (09:09)
[2017-05-29] MEDS ORDERED: Midazolam 2 MG/2 ML VIAL ONE (09:10)
[2017-05-29] MEDS ORDERED: Lactated Ringer's 500 ML IV ONE (09:10)
[2017-05-29] MEDS ORDERED: Bupivacaine HCl 0.25% PF (10 ml) Inj IJ ONE (09:25)
[2017-05-29] MEDS ORDERED: MethylPREDNISolone Depo 40 mg/ml Inj IM ONE (09:25)
[2017-05-29] MEDS ORDERED: Iohexol 300 10 ML IJ ONE (09:25)
[2017-05-29] MEDS ORDERED: Lidocaine 1% Inj (20ml) IJ ONE (09:25)
[2017-05-29] MEDS ORDERED: Sodium Chloride 0.9% 1,000 ML IV SCH (09:45)
[2017-05-29] MEDS ORDERED: HYDROmorphone 0.5 mg/0.5 ml ISec ONE (09:54)
[2017-05-29] MEDS: HYDROmorphone 0.5 mg/0.5 ml ISec IVP PRN ×3 (10:01→10:25)
[2017-05-29] MEDS ORDERED: Oxycodone/Acetaminophen 5/325 mg Tab PO PRN (11:18)
--- NOTE | 2017-05-29 12:18 | OP ---
PROCEDURE DATE: 05/29/2017 PREOPERATIVE DIAGNOSES: Lumbar radiculopathy and right sacroiliitis. POSTOPERATIVE DIAGNOSES: Lumbar radiculopathy and right sacroiliitis. PROCEDURE: Right L4-5 and L5-S1 transforaminal epidural steroid injection and right sacroiliac joint steroid injection. ANESTHESIOLOGIST: . SURGEON: Isma Hoskins MD TYPE OF ANESTHESIA: Monitored anesthesia care. COMPLICATIONS: None. SPECIMENS: None. DESCRIPTION OF PROCEDURE: As follows. After, we had discussion of the procedure with the patient including its risks, benefits, alternative, outcome data, possibility of no effect or increased pain, the patient consented to the procedure. She denied any recent infection, bleeding tendencies or being on anticoagulants, a decision was then made to proceed to the OR. The patient was placed on the fluoroscopy table in a prone position with two pillows underneath her abdomen. The back was prepped and draped in the usual sterile fashion and a sterile technique was adhered during the entire procedure. The L4 and L5 vertebral levels were first identified in the anterior-posterior view. Angulation towards the right at approximately 20 degrees was used to maximize the visualization of the right L4 and L5 pedicles. The skin overlying the 6 o'clock position of both pedicles was then infiltrated with 1% lidocaine using a 25-gauge needle. Subsequently, a 22-gauge 5-inch spinal needle was then incrementally advanced under fluoroscopic guidance until the tip of the needle lay within the intervertebral foramen. After a satisfactory positioning of both needles, approximately 0.5 mL of Isovue contrast was injected, showing appropriate epidural and nerve root spread without any signs of CSF or intravenous involvement. At this point, approximately 3 mL of 0.25% Marcaine and Depo-Medrol mixture was injected. The needle was then removed. sacroiliac joint was visualized on the anterior-posterior view. The target is at the inferior pole of the posterior opening. The skin overlying this area was infiltrated with 1% lidocaine using a 25-gauge needle. Subsequently, a 22-gauge 3.5-inch spinal needle was then incrementally advanced under fluoroscopic guidance until the tip of the needle walk into the joint capsule. This was confirmed by injecting approximately 0.5 mL of Isovue contrast. After satisfactory positioning of the needle, approximately 0.5 mL of Isovue contrast was injected showing appropriate spread of the joint. At this point, approximately 3 mL of 0.25% Marcaine and Depo-Medrol mixture was injected. The needle was then removed and the patient's back was cleaned and dried; bandages were applied. The patient was then transferred to the recovery area in good condition without any signs of LEGAL FILE CLERK toxicity or any neurological deficits. She will have follow in our office in approximately 2 to 4 weeks. En-Peter Hoskins MD
[2017-05-29 14:22] VITALS: BP 129/91; PULSE 57; TEMP 97.5; O2SAT 98
--- NOTE | 2017-05-29 17:09 | RAD ---
PROCEDURE: Intraoperative Fluoroscopy. HISTORY: PAIN MANAGEMENT FINDINGS: Fluoroscopic assistance was provided. 29.3 minutes fluoroscopy time utilized during this procedure. Radiation dose = 11.64 mGy Please refer to the operative report from KRISHNA Mcqueen.
== END 2017-05-29 15:40 | disposition home or self-care (01) ==
LOC: H.OPSURG 07:01
PROVIDERS: ATTEND Anesthesiology
DX: M54.16 Radiculopathy, lumbar region (principal); J45.909 Unspecified asthma, uncomplicated; I10 Essential (primary) hypertension; M46.1 Sacroiliitis, not elsewhere classified
CPT/HCPCS: 20610; 64483; 64484; 99152; J1030; J1170; J2001; J2250; J2405; J2704; J3010; J7040; J7120; Q9967

== ENCOUNTER 2017-06-19 07:53 | Emergency (ER) | payer BC, MEDICAID ==
[2017-06-19 07:54] VITALS: BMI 29.8
--- NOTE | 2017-06-19 08:12 | ED PDOC ---
HPI: Back Time Seen by Provider: 06/19/17 07:57 Chief Complaint (Nursing): Back Pain History Per: Patient Onset/Duration Of Symptoms: Persistent Current Symptoms Are (Timing): Still Present Quality Of Discomfort: Aching Severity: Moderate Pain Scale Rating Of: 5 Previous Symptoms: Back Pain Associated Symptoms: None Exacerbating Factor(s): Movement Additional Complaint(s): Chronic low back pain radiating to right buttock and down right leg. H/o herniated L3-4 and L5S1 disc. Had recent EVIE but has persistent pain worse this AM. No weakness or urinary/fecal incontinence Past Medical History Vital Signs: Last Vital Signs Temp 98 F 06/19/17 07:59 Pulse 82 06/19/17 07:59 Resp 16 06/19/17 07:59 BP 154/95 H 06/19/17 07:59 Pulse Ox 99 06/19/17 07:59 - Medical History PMH: Asthma, Back Problems, Gastritis, GERD, HTN, Chronic Pain (Sciatica) Denies: Chronic Kidney Disease - Family History Family History: States: Hypertension - Immunization History Hx Tetanus Toxoid Vaccination: No Hx Influenza Vaccination: No Hx Pneumococcal Vaccination: No - Home Medications Home Medications: Ambulatory Orders Medication Instructions Recorded Lisinopril [Zestril] 20 mg PO DAILY 11/05/14 Fluticasone/Salmeterol 100/50 1 puff INH BID #1 puff 03/20/15 [Advair Diskus 100/50] Albuterol Sulfate [Proair Hfa] 0.09 mg IH Q6H PRN #2 inh 01/31/16 Hydrocortisone 2.5% 1 apful TP BID 5 Days oin 07/25/16 Promethazine HCl/Codeine 5 ml PO HS #80 ml 11/07/16 [Prometh-Codein 6.25-10 mg/5 ml] Albuterol HFA [Ventolin HFA 90 2 puff IH [id number] PRN #60 puff 12/27/16 mcg/actuation (8 g)] Promethazine DM [Phenergan DM 5 ml PO Q8H PRN #120 ml 12/27/16 Syrup] Ibuprofen [Motrin Tab] 600 mg PO QID PRN #20 tab 03/16/17 - Allergies Allergies/Adverse Reactions: Allergies Allergy/AdvReac Type Severity Reaction Status Date / Time mold Allergy URTICARIA Verified 06/19/17 07:58 dust Allergy URTICARIA Uncoded 03/16/17 13:16 Review of Systems Constitutional: Negative for: Fever Genitourinary Female: Negative for: Dysuria, Frequency, Incontinence Musculoskeletal: Positive for: Back Pain Neurological: Negative for: Weakness, Numbness Physical Exam - Physical Exam Appears: Positive for: Non-toxic, Uncomfortable Skin: Positive for: Normal Color, Warm, DRY Back: Positive for: Normal Inspection, Muscle Spasm (Lumbar area). Negative for : Vertebral Tenderness Extremity: Negative for: Deformity, Swelling Neurologic/Psych: Positive for: Alert, Oriented. Negative for: Motor/Sensory Deficits - ECG O2 Sat by Pulse Oximetry: 99 Disposition - Clinical Impression Clinical Impression: Radiculopathy of lumbar region - Patient ED Disposition Is Patient to be Admitted: No Counseled Patient/Family Regarding: Diagnosis, Need For Followup - Disposition Referrals: Isma Hoskins MD [Staff Provider] - Disposition: Routine/Home Disposition Time: 11:40 Condition: FAIR Instructions: Radiculopathy Forms: [employer] (Malagasy)
[2017-06-19] MEDS ORDERED: Oxycodone/Acetaminophen 5/325 mg Tab PO STA (09:11)
[2017-06-19] MEDS ORDERED: Oxycodone/Acetaminophen 5/325 mg Tab ONE (09:19)
[2017-06-19 13:43] VITALS: BP 120/70; PULSE 72; RESP 20; TEMP 98.4; O2SAT 98
== END 2017-06-19 13:44 | disposition home or self-care (01) ==
LOC: H.ER 07:53
DX: M54.16 Radiculopathy, lumbar region (principal); G89.29 Other chronic pain; I10 Essential (primary) hypertension; J45.909 Unspecified asthma, uncomplicated; K21.9 Gastro-esophageal reflux disease without esophagitis
CPT/HCPCS: 96372; 99283; J1885

== ENCOUNTER 2017-08-03 16:36 | Emergency (ER) | payer BC, MEDICAID ==
[2017-08-03 16:36] VITALS: BMI 30.4
[2017-08-03 17:21] VITALS: RESP 18; O2SAT 98
[2017-08-03] MEDS ORDERED: Sodium Chloride 0.9% 1,000 ML IV STA (17:49)
--- NOTE | 2017-08-03 18:17 | ED PDOC ---
HPI: Female Pain Time Seen by Provider: 08/03/17 17:00 Chief Complaint (Nursing): Fever Chief Complaint (Provider): Fever History Per: Patient History/Exam Limitations: no limitations Onset/Duration Of Symptoms: Days Current Symptoms Are (Timing): Still Present Associated Symptoms: Fever, Chills, Nausea, Vomiting, Urinary Symptoms Additional Complaint(s): 52 y/o female with a history of HTN, chronic back pain, and asthma presents to the ED for urinary symptoms. Patient states it began last night when she felt urgency to use the restroom. She also complains of frequency, chills, nausea, vomiting, and a fever with an at home temperature measured at 102 F. Patient denies any coughing. and also denies back or abdominal pain now. PMD: Vlad Appiah Past Medical History Reviewed: Historical Data, Nursing Documentation, Vital Signs Vital Signs: Last Vital Signs Temp 100.4 F H 08/03/17 17:18 Pulse 109 H 08/03/17 17:18 Resp 18 08/03/17 17:18 BP 117/71 08/03/17 17:18 Pulse Ox 98 08/03/17 17:18 - Medical History PMH: Asthma, Back Problems, Gastritis, GERD, HTN, Chronic Pain (Sciatica) Denies: Chronic Kidney Disease - Surgical History Surgical History: No Surg Hx - Family History Family History: States: Hypertension - Social History Current smoker - smoking cessation education provided: No Alcohol: None Drugs: Denies - Immunization History Hx Tetanus Toxoid Vaccination: No Hx Influenza Vaccination: No Hx Pneumococcal Vaccination: No - Home Medications Home Medications: Ambulatory Orders Medication Instructions Recorded Lisinopril [Zestril] 20 mg PO DAILY 11/05/14 Fluticasone/Salmeterol 100/50 1 puff INH BID #1 puff 03/20/15 [Advair Diskus 100/50] Albuterol Sulfate [Proair Hfa] 0.09 mg IH Q6H PRN #2 inh 01/31/16 Hydrocortisone 2.5% 1 apful TP BID 5 Days oin 07/25/16 Promethazine HCl/Codeine 5 ml PO HS #80 ml 11/07/16 [Prometh-Codein 6.25-10 mg/5 ml] Albuterol HFA [Ventolin HFA 90 2 puff IH [id number] PRN #60 puff 12/27/16 mcg/actuation (8 g)] Promethazine DM [Phenergan DM 5 ml PO Q8H PRN #120 ml 12/27/16 Syrup] Ibuprofen [Motrin Tab] 600 mg PO QID PRN #20 tab 03/16/17 Nitrofurantoin Macrocrystals 100 mg PO BID #14 cap 08/03/17 [Macrobid] - Allergies Allergies/Adverse Reactions: Allergies Allergy/AdvReac Type Severity Reaction Status Date / Time mold Allergy URTICARIA Verified 06/19/17 07:58 dust Allergy URTICARIA Uncoded 03/16/17 13:16 Review of Systems ROS Statement: Except As Marked, All Systems Reviewed And Found Negative Constitutional: Positive for: Fever (102 T taken at home), Chills Respiratory: Negative for: Cough Gastrointestinal: Positive for: Nausea, Vomiting Genitourinary Female: Positive for: Dysuria, Frequency, Other (urgency) Physical Exam - Reviewed Nursing Documentation Reviewed: Yes Vital Signs Reviewed: Yes - Physical Exam Appears: Positive for: Non-toxic, No Acute Distress, Uncomfortable (patient is seen shivering with fever) Head Exam: Positive for: ATRAUMATIC, NORMAL INSPECTION, NORMOCEPHALIC Skin: Positive for: Normal Color, Warm Eye Exam: Positive for: EOMI, Normal appearance, PERRL ENT: Positive for: Normal ENT Inspection Neck: Positive for: Normal, Painless ROM, Supple Cardiovascular/Chest: Positive for: Regular Rate, Rhythm. Negative for: Murmur Respiratory: Positive for: Normal Breath Sounds. Negative for: Respiratory Distress Gastrointestinal/Abdominal: Positive for: Normal Exam, Soft. Negative for: Tenderness Back: Positive for: Normal Inspection. Negative for: L CVA Tenderness, R CVA Tenderness, Vertebral Tenderness Extremity: Positive for: Normal ROM. Negative for: Pedal Edema, Deformity Neurologic/Psych: Positive for: Alert, Oriented (x3) - Laboratory Results Result Diagrams: 08/03/17 18:15 08/03/17 18:15 - ECG O2 Sat by Pulse Oximetry: 98 (RA) Pulse Ox Interpretation: Normal Medical Decision Making Medical Decision Making: Time: 17:18 Impression: Fever r/o UTI, pneumonia, or sepsis Initial Plan: * VBG Shock Panel * CMP * CBC * Chest X-Ray * Tylenol 650 mg PO * IV Fluids * Blood Culture * Urine Culture * Urinalysis Time: 21:00 Labs reviewed. cxr no pneumonia appreciated. lactic acid normal. Waiting on urinalysis to confirm UTI. urine shows uti. Time: 23:13 Patient given IV antibiotics and is stable for discharge. Upon reevaluation, patient has no abdominal pain and is not vomiting. Patient is ambulating through the ED in no distress/. the diagnosis of UTI was discussed. pt agreeable to plan. Scribe Attestation: Documented by Luis Pace and Reji Munguia acting as a scribe for Matilda Faith MD. Scribe Attestation: All medical record entries made by the Scribe were at my direction and personally dictated by me. I have reviewed the chart and agree that the record accurately reflects my personal performance of the history, physical exam, medical decision making, and the department course for this patient. I have also personally directed, reviewed, and agree with the discharge instructions and disposition. Disposition - Clinical Impression Clinical Impression: Fever in adult, Anemia, Elevated LFTs - Patient ED Disposition Is Patient to be Admitted: No Counseled Patient/Family Regarding: Studies Performed, Diagnosis, Need For Followup - Disposition Referrals: [facility] [Outside] [facility] [Outside] Disposition: Routine/Home Disposition Time: 20:00 Condition: IMPROVED Additional Instructions: follow up with your primary doctor in 1-2 days return to the ED with any worsening or concerning symptoms Prescriptions: Nitrofurantoin Macrocrystals [Macrobid] 100 mg PO BID #14 cap Instructions: Anemia Caused by Low Iron, Adult (DC), Urinary Tract Infection, Adult (DC), Fever, Adult (DC) Forms: [facility] (Bahamian)
[2017-08-03 18:31] LABS: BASO % 0.3 % (0.0-2.0); EOS # 0.1 K/uL (0.0-0.7); EOS % 0.9 % (0.0-4.0); HEMOGLOBIN 9.8 g/dL (12.0-16.0); LYMPH # 0.8 K/uL (1.0-4.3); LYMPH % 7.1 % (20.0-40.0); MEAN CELL VOLUME 84.5 fl (81.0-99.0); MEAN CORPUSCULAR HEMOGLOBIN 28.2 pg (27.0-31.0); MEAN CORPUSCULAR HGB CONC 33.3 g/dL (33.0-37.0); MEAN PLATELET VOLUME 7.1 fl (7.2-11.7); MONO # 0.9 K/uL (0.0-0.8); MONO % 8.3 % (0.0-10.0); NEUT # 9.4 K/uL (1.8-7.0); NEUT % 83.4 % (50.0-75.0); PLATELET COUNT 313 K/uL (130-400); RBC 3.49 Mil/uL (3.80-5.20); RED CELL DISTRIBUTION WIDTH 14.8 % (11.5-14.5); WHITE BLOOD COUNT 11.3 K/uL (4.8-10.8)
[2017-08-03 18:35] LABS: VENOUS BLOOD GAS BASE EXCESS 4.6 mmol/L (0.0-2.0); VENOUS BLOOD GAS PCO2 38 mmHg (40-60); VENOUS BLOOD GAS PO2 41 mm/Hg (30-55); VENOUS BLOOD PH 7.48 (7.32-7.43)
--- NOTE | 2017-08-03 18:41 | RAD ---
HISTORY: COMPARISON: 11/21/2016. TECHNIQUE: Chest PA and lateral FINDINGS: LINES AND TUBES: None. LUNG AND PLEURA: The lungs are well inflated and clear. No pleural effusion or pneumothorax. HEART AND MEDIASTINUM: The heart is not enlarged. The hilar and mediastinal contours are within normal limits. SKELETAL STRUCTURES: The bony structures are within normal limits for the patient's age. VISUALIZED UPPER ABDOMEN: Normal. OTHER FINDINGS: None. IMPRESSION: No active pulmonary disease.
[2017-08-03 19:02] LABS: ALBUMIN 3.7 g/dL (3.5-5.0); ALT/SGPT 57 U/L (9-52); AST/SGOT 69 U/L (14-36); BLOOD UREA NITROGEN 11 mg/dl (7-17); CALCIUM 8.6 mg/dL (8.4-10.2); GFR AFRICAN-AMERICAN > 60; GFR NON-AFRICAN AMERICAN > 60
[2017-08-03 19:20] LABS: BANDS 1 % (0-2); LYMPHOCYTE 3 % (20-50); MONOCYTE 12 % (0-10); NEUTROPHIL 83 % (42-75); REACTIVE LYMPHOCYTES 1 % (0-0); TOTAL CELLS COUNTED 100
[2017-08-03 19:22] LABS: HYPOCHROMIC SLIGHT; PLATELET ESTIMATE NORMAL (NORMAL); STOMATOCYTES SLIGHT
[2017-08-03 21:53] LABS: SQUAMOUS EPITHIAL 7 /hpf (0-5); URINE BACTERIA RARE (<OCC); URINE BILIRUBIN NEGATIVE (NEGATIVE); URINE BLOOD SMALL (NEGATIVE); URINE CLARITY CLOUDY (Clear); URINE COLOR YELLOW (YELLOW); URINE GLUCOSE (UA) NEG (Normal); URINE LEUKOCYTE ESTERASE MOD Leu/uL (Negative); URINE PROTEIN 100 mg/dL (NEGATIVE); URINE UROBILINOGEN 0.2-1.0 mg/dL (0.2-1.0)
[2017-08-03] MEDS ORDERED: cefTRIAXone (Rocephin) 1 gm Inj ONE (22:48)
[2017-08-03 22:55] VITALS: TEMP 98.8
[2017-08-03 23:30] VITALS: BP 113/64; PULSE 82
== END 2017-08-04 00:08 | disposition home or self-care (01) ==
LOC: H.ER 16:36
DX: R50.9 Fever, unspecified (principal); D64.9 Anemia, unspecified; R94.5 Abnormal results of liver function studies; G89.29 Other chronic pain; I10 Essential (primary) hypertension; N39.0 Urinary tract infection, site not specified
CPT/HCPCS: 71046; 80053; 81003; 82803; 85025; 87040; 87086; 87181; 96361; 96365; 99284; J0696; J7040

== ENCOUNTER 2017-10-06 08:23 | Emergency (ER) | payer BC, MEDICAID ==
[2017-10-06 08:28] VITALS: BMI 29.8
[2017-10-06 08:43] VITALS: O2SAT 99
--- NOTE | 2017-10-06 08:45 | ED PDOC ---
Lower Extremity Pain/Injury Time Seen by Provider: 10/06/17 08:26 Chief Complaint (Provider): right foot numbness History Per: Patient History/Exam Limitations: no limitations Onset/Duration Of Symptoms: Days (x 2) Current Symptoms Are (Timing): Still Present Additional Complaint(s): 52-year-old female, with a past medical history of herniated lumbar discs, presents to emergency department for right foot numbness x 2 days. Denies pain. Denies weakness. Pt reports she has been changing gait and has subsequently left knee pain. PMD: Provider TBD Past Medical History Reviewed: Historical Data, Nursing Documentation, Vital Signs Vital Signs: Last Vital Signs Temp 98.2 F 10/06/17 08:29 Pulse 92 H 10/06/17 08:29 Resp 20 10/06/17 08:29 BP 117/81 10/06/17 08:29 Pulse Ox 99 10/06/17 08:29 - Medical History PMH: Asthma, Back Problems, Gastritis, GERD, HTN, Chronic Pain (Sciatica) Denies: Chronic Kidney Disease Other PMH: herniated lumbar discs - Family History Family History: States: Hypertension - Immunization History Hx Tetanus Toxoid Vaccination: No Hx Influenza Vaccination: No Hx Pneumococcal Vaccination: No - Home Medications Home Medications: Ambulatory Orders Medication Instructions Recorded Lisinopril [Zestril] 20 mg PO DAILY 11/05/14 Fluticasone/Salmeterol 100/50 1 puff INH BID #1 puff 03/20/15 [Advair Diskus 100/50] Albuterol Sulfate [Proair Hfa] 0.09 mg IH Q6H PRN #2 inh 01/31/16 Hydrocortisone 2.5% 1 apful TP BID 5 Days oin 07/25/16 Promethazine HCl/Codeine 5 ml PO HS #80 ml 11/07/16 [Prometh-Codein 6.25-10 mg/5 ml] Albuterol HFA [Ventolin HFA 90 2 puff IH [id number] PRN #60 puff 12/27/16 mcg/actuation (8 g)] Promethazine DM [Phenergan DM 5 ml PO Q8H PRN #120 ml 12/27/16 Syrup] Ibuprofen [Motrin Tab] 600 mg PO QID PRN #20 tab 03/16/17 Nitrofurantoin Macrocrystals 100 mg PO BID #14 cap 08/03/17 [Macrobid] Naproxen [Naprosyn] 500 mg PO Q12H #20 tab 10/06/17 - Allergies Allergies/Adverse Reactions: Allergies Allergy/AdvReac Type Severity Reaction Status Date / Time mold Allergy URTICARIA Verified 06/19/17 07:58 dust Allergy URTICARIA Uncoded 03/16/17 13:16 Review of Systems ROS Statement: Except As Marked, All Systems Reviewed And Found Negative Musculoskeletal: Positive for: Other ((+) R foot numbness, (+) L knee pain). Negative for: Foot Pain Neurological: Negative for: Weakness Physical Exam - Reviewed Nursing Documentation Reviewed: Yes Vital Signs Reviewed: Yes - Physical Exam Pulses-Dorsalis Pedis (R): 2+ Pulses-Post. Tibialis (R): 2+ Back: Positive for: Normal Inspection. Negative for: Vertebral Tenderness Extremity: Positive for: Other (Right Foot: (-) swelling, (-) deformity, (-) tenderness. Left Knee: (+) mild swelling, (+) Full ROM, (-) crepitus, (-) tenderness to palpation) Neurologic/Psych: Positive for: Other (Motor and sensation intact) - ECG O2 Sat by Pulse Oximetry: 99 Medical Decision Making Medical Decision Making: Time: 08:39 Plan: - L Knee X-Ray Scribe Attestation: Documented by Domenic Valderrama, acting as a scribe for Roberto Carlos Turner MD Provider Scribe Attestation: All medical record entries made by the Scribe were at my direction and personally dictated by me. I have reviewed the chart and agree that the record accurately reflects my personal performance of the history, physical exam, medical decision making, and the department course for this patient. I have also personally directed, reviewed, and agree with the discharge instructions and disposition. Disposition - Clinical Impression Clinical Impression: Knee strain - Patient ED Disposition Is Patient to be Admitted: No Counseled Patient/Family Regarding: Studies Performed, Diagnosis, Need For Followup, Rx Given - Disposition Referrals: Isma Hoskins MD [Staff Provider] - Disposition: Routine/Home Disposition Time: 09:05 Condition: FAIR Prescriptions: Naproxen [Naprosyn] 500 mg PO Q12H #20 tab Instructions: Knee Sprain (DC)
[2017-10-06] MEDS ORDERED: Naproxen 500 MG TAB PO STA (09:04)
[2017-10-06 09:17] VITALS: BP 120/80; PULSE 90; RESP 16; TEMP 98
--- NOTE | 2017-10-06 13:29 | RAD ---
Date of service: 10/06/2017 PROCEDURE: Left Knee Radiographs. HISTORY: Pain. COMPARISON: None. FINDINGS: BONES: No acute fracture or destructive bony lesion identified. JOINTS: Limited medial femorotibial joint space narrowing is appreciated pattern with degenerative joint disease. No significant osteophyte development in any of the compartments. Vacuum changes are questioned at the lateral meniscus or left femorotibial joint space otherwise. JOINT EFFUSION: None. OTHER FINDINGS: None. IMPRESSION: No acute fracture or dislocation. Degenerative changes are seen mildly, potentially including trace gas in the lateral femorotibial compartment, possibly in the lateral meniscus. Clinically correlate further.
== END 2017-10-06 09:15 | disposition home or self-care (01) ==
LOC: H.ER 08:23
DX: M25.562 Pain in left knee (principal); G89.29 Other chronic pain

== ENCOUNTER 2017-12-11 06:00 | Day surgery (SDC) | payer BC, MEDICAID ==
[2017-12-11] MEDS ORDERED: Lactated Ringer's 1,000 ML IV ONE (06:44)
[2017-12-11 06:46] VITALS: BMI 28.2
[2017-12-11] MEDS ORDERED: Propofol 10 mg/ml Inj (20 ML) ONE ×2 (07:31→07:55)
[2017-12-11] MEDS ORDERED: Lidocaine 2% Inj (20ml) INFIL ONE (07:50)
[2017-12-11] MEDS ORDERED: methylPREDNISolone Depo 80 mg/ml Inj IAA ONE (07:50)
[2017-12-11] MEDS ORDERED: Bupivacaine 0.25% Inj(30mL) IJ ONE (07:50)
[2017-12-11] MEDS ORDERED: Lactated Ringer's 1,000 ML IV SCH ×2 (08:05→08:15)
[2017-12-11] MEDS ORDERED: HYDROmorphone 0.5 mg/0.5 ml ISec IVP PRN (08:05)
[2017-12-11] MEDS: HYDROmorphone 0.5 mg/0.5 ml ISec IVP PRN ×3 (08:07→08:40)
[2017-12-11 09:51] VITALS: RESP 18
[2017-12-11 10:21] VITALS: BP 146/82; PULSE 81; TEMP 98.8; O2SAT 97
--- NOTE | 2017-12-11 14:09 | RAD ---
Date of service: 12/11/2017 PROCEDURE: Fluoroscopic guided epidural steroid injection HISTORY: PAIN MANAGEMENT COMPARISON: None TECHNIQUE: Standard protocol for this study/examination. FINDINGS: Total fluoroscopic time (continuous mode) utilized during the procedure 25.2 (seconds). Total exam DLP: 9.98 (mGy). IMPRESSION: Less than 1 hr fluoroscopic assistance provided during performance of the procedure.
--- NOTE | 2017-12-11 19:13 | OP ---
PROCEDURE DATE: 12/11/2017 PREOPERATIVE DIAGNOSIS: Lumbar radiculopathy. POSTOPERATIVE DIAGNOSIS: Lumbar radiculopathy. PROCEDURE: Left L4-5, L5-S1, and transforaminal epidural steroid injection. ANESTHESIOLOGIST: Stan Redding MD SURGEON: Isma Hoskins MD TYPE OF ANESTHESIA: Monitored anesthesia care. COMPLICATIONS: None. SPECIMENS: None. DESCRIPTION OF PROCEDURE: After we had discussion of the procedure with the patient including its risks, benefits, alternatives, outcome data, and possibility of no effect or increased pain, the patient consented to the procedure. She denied any recent infections, bleeding tendencies or being on anticoagulants. A decision was then made to proceed to the OR. The patient was placed on the fluoroscopy table in a prone position with two pillows underneath her abdomen. The back was prepped and draped in the usual sterile fashion and a sterile technique was adhered to during the entire procedure. The L4 and L5 vertebral levels were first identified in the anteroposterior view. Angulation towards the left at approximately 20 degrees was used to maximize the visualization of the left L4 and L5 pedicles. The skin overlying the 6 o'clock position of both pedicles was then infiltrated with 1% lidocaine using 25-gauge needle. Subsequently, a 22-gauge 5-inch spinal needle was then incrementally advanced under fluoroscopic guidance until the tip of needle walked into the intervertebral foramen. This was confirmed on the lateral fluoroscopy view. After satisfactory positioning of both needles, approximately 1 mL of Isovue contrast was injected into the each level showing appropriate epidural nerve root spread without any signs of CSF or intravenous involvement. At this point, approximately 3 mL of 0.25% Marcaine and Depo-Medrol mixture was injected. The needle was then removed and the patient's back was cleaned and dry bandages were applied. The patient was then transported to the recovery area in good condition without any signs of [employer] toxicity or any neurological deficit. She will be following in our office in approximately two to four weeks. Isma Hoskins MD
== END 2017-12-11 11:04 | disposition home or self-care (01) ==
LOC: H.OPSURG 06:00
PROVIDERS: ATTEND Anesthesiology
DX: M54.16 Radiculopathy, lumbar region (principal); J45.909 Unspecified asthma, uncomplicated; I10 Essential (primary) hypertension
CPT/HCPCS: 64483; 64484; J1040; J1170; J2001; J2704; J7120

== ENCOUNTER 2018-04-17 10:20 | Emergency (ER) | payer BC, MEDICAID ==
[2018-04-17 10:20] VITALS: BMI 28.2
[2018-04-17 11:42] LABS: BASO % 0.7 % (0.0-2.0); EOS # 0.1 K/uL (0.0-0.7); EOS % 2.9 % (0.0-4.0); HEMOGLOBIN 10.5 g/dL (12.0-16.0); LYMPH # 1.7 K/uL (1.0-4.3); LYMPH % 38.6 % (20.0-40.0); MEAN CELL VOLUME 83.2 fl (81.0-99.0); MEAN CORPUSCULAR HEMOGLOBIN 27.5 pg (27.0-31.0); MEAN PLATELET VOLUME 7.5 fl (7.2-11.7); MONO # 0.4 K/uL (0.0-0.8); MONO % 9.5 % (0.0-10.0); NEUT # 2.1 K/uL (1.8-7.0); NEUT % 48.3 % (50.0-75.0); NRBC % 0.1 % (0.0-0.0); RBC 3.83 Mil/uL (3.80-5.20); RED CELL DISTRIBUTION WIDTH 13.9 % (11.5-14.5); WHITE BLOOD COUNT 4.4 K/uL (4.8-10.8)
--- NOTE | 2018-04-17 11:47 | ED PDOC ---
HPI: Chest Pain Time Seen by Provider: 04/17/18 10:41 Chief Complaint (Nursing): Chest Pain Chief Complaint (Provider): Chest Pain History Per: Patient History/Exam Limitations: no limitations Onset/Duration Of Symptoms: Days Current Symptoms Are (Timing): Still Present Quality: "Pain" Additional Complaint(s): 53 year old female with asthma presents to the ED for an evaluation of chest pain onset yesterday with lower bilateral rib pain that worsens with deep breaths or movement. Patient reports the symptoms occurred after riding a mechanical bull and fell 5 times, believing to have injured her chest. Also states of wheezing and mild coughing yesterday for which she did not take any medication and has completed the medication in her asthma pump. Otherwise, she denies fever, shortness of breath or swelling. PMD: Chaitanya Chu Past Medical History Reviewed: Historical Data, Nursing Documentation, Vital Signs Vital Signs: Last Vital Signs Temp 98.8 F 04/17/18 10:31 Pulse 81 04/17/18 10:40 Resp 19 04/17/18 10:31 BP 118/77 04/17/18 10:47 Pulse Ox 100 04/17/18 10:31 - Medical History PMH: Asthma, Back Problems, Gastritis, GERD, HTN, Chronic Pain (Sciatica) Denies: Chronic Kidney Disease - Surgical History Other surgeries: left knee surgery and bilateral foot surgery - Family History Family History: States: Unknown Family Hx, Hypertension - Social History Current smoker - smoking cessation education provided: No Alcohol: Social Drugs: Denies - Immunization History Hx Tetanus Toxoid Vaccination: No Hx Influenza Vaccination: No Hx Pneumococcal Vaccination: No - Home Medications Home Medications: Ambulatory Orders Medication Instructions Recorded RX: Lisinopril [Zestril] 20 mg PO DAILY 11/05/14 Fluticasone/Salmeterol 100/50 1 puff INH BID #1 puff 03/20/15 [Advair Diskus 100/50] Albuterol Sulfate [Proair Hfa] 0.09 mg IH Q6H PRN #2 inh 01/31/16 RX: Hydrocortisone 2.5% 1 apful TP BID 5 Days oin 07/25/16 Promethazine HCl/Codeine 5 ml PO HS #80 ml 11/07/16 [Prometh-Codein 6.25-10 mg/5 ml] RX: Promethazine DM [Phenergan DM 5 ml PO Q8H PRN #120 ml 12/27/16 Syrup] Nitrofurantoin Macrocrystals 100 mg PO BID #14 cap 08/03/17 [Macrobid] Naproxen [Naprosyn] 500 mg PO Q12H #20 tab 10/06/17 Albuterol 0.083% [Albuterol 3 ml IH Q6 #20 neb 04/17/18 Sulfate 3 Ml] Albuterol HFA [Ventolin HFA 90 2 puff IH [id number] PRN #60 puff 04/17/18 mcg/actuation (8 g)] RX: Ibuprofen [Motrin Tab] 600 mg PO QID PRN #20 tab 04/17/18 - Allergies Allergies/Adverse Reactions: Allergies Allergy/AdvReac Type Severity Reaction Status Date / Time mold Allergy URTICARIA Verified 06/19/17 07:58 dust Allergy URTICARIA Uncoded 03/16/17 13:16 KAREN Risk Score for UA/NSTEMI - KAREN Risk Score Age > 64: NO 3 or more CAD Risk Factors: NO Known CAD (Stenosis greater than 50%): NO Aspirin use in past 7 days: NO Severe Angina: NO EKG ST changes greater than 0.5mm: NO Positive Cardiac Marker: NO KAREN Score: 0 Risk %: 5% Wells Criteria for PE - Wells Criteria for Pulmonary Embolism Clinical Signs and Symptoms of DVT: No P.E is #1 Diagnosis, or Equally Likely: No Heart Rate >100: No Immobilization at least 3 days;Surgery previous 4 weeks: No Previous, objectively diagnosed PE or DVT: No Hemoptysis: No Malignancy w/treatment within 6 months, or palliative: No Total Score: 0 Review of Systems ROS Statement: Except As Marked, All Systems Reviewed And Found Negative Constitutional: Negative for: Fever Cardiovascular: Positive for: Chest Pain Respiratory: Positive for: Cough (mild), Wheezing. Negative for: Shortness of Breath Physical Exam - Reviewed Nursing Documentation Reviewed: Yes Vital Signs Reviewed: Yes - Physical Exam Appears: Positive for: Non-toxic, No Acute Distress Head Exam: Positive for: ATRAUMATIC, NORMAL INSPECTION, NORMOCEPHALIC Skin: Positive for: Normal Color, Warm, Dry. Negative for: Rash Eye Exam: Positive for: EOMI, Normal appearance, PERRL ENT: Positive for: Normal ENT Inspection Neck: Positive for: Normal, Painless ROM, Supple. Negative for: Decreased ROM Cardiovascular/Chest: Positive for: Regular Rate, Rhythm, Other (On chest wall there is tenderness in lower anterior rib area bilateral, no bruising, or deformity). Negative for: Murmur Respiratory: Positive for: Normal Breath Sounds. Negative for: Decreased Breath Sounds, Respiratory Distress Gastrointestinal/Abdominal: Positive for: Normal Exam, Soft. Negative for: Tenderness, Guarding, Rebound Back: Positive for: Normal Inspection Extremity: Positive for: Normal ROM. Negative for: Tenderness, Pedal Edema, Deformity Neurologic/Psych: Positive for: Alert, Oriented (x3). Negative for: Motor/Sensory Deficits - Laboratory Results Result Diagrams: 04/17/18 11:32 04/17/18 12:00 - ECG ECG: Positive for: Interpreted By Me, Viewed By Me ECG Rhythm: Positive for: Normal QRS, Normal ST Segment, Sinus Rhythm Rate: 78 O2 Sat by Pulse Oximetry: 100 - Progress Re-evaluation Time: 13:40 Condition: Re-examined, Improved Medical Decision Making Medical Decision Making: Time: 1107 Impression: chest pain, rib pain Differential Diagnosis includes but is not limited to: rib contusion, rib fracture, musculoskeletal pain, pneumothorax Plan: --EKG --BMP --Troponin --CBC w/ differential --Chest two views [RAD] --Toradol 30mg --conveyor monitor --Reevaluation EKG: normal QRS, normal ST segment, normal sinus rhythm with 78 bpm Time: 1226 FINDINGS: LINES AND TUBES: None. LUNG AND PLEURA: The lungs are well inflated. There is subsegmental atelectasis in the lung bases. No focal consolidation. No pleural effusion or pneumothorax. HEART AND MEDIASTINUM: The heart is not enlarged. No aortic atherosclerotic calcifications present. The hilar and mediastinal contours are within normal limits. SKELETAL STRUCTURES: The bony structures are within normal limits for the patient's age. VISUALIZED UPPER ABDOMEN: Normal. OTHER FINDINGS: None. IMPRESSION: No active pulmonary disease. ------ Scribe Attestation: Documented by Vijay Erickson, acting as a scribe for Iesha Esparza MD. Provider Scribe Attestation: All medical record entries made by the Scribe were at my direction and personally dictated by me. I have reviewed the chart and agree that the record accurately reflects my personal performance of the history, physical exam, medical decision making, and the department course for this patient. I have also personally directed, reviewed, and agree with the discharge instructions and disposition. Disposition - Clinical Impression Clinical Impression: Atypical chest pain - Patient ED Disposition Is Patient to be Admitted: No Doctor Will See Patient In The: Office Counseled Patient/Family Regarding: Studies Performed, Diagnosis, Need For Followup - Disposition Referrals: Chaitanya Chu MD [Staff Provider] - Disposition: Routine/Home Disposition Time: 13:41 Condition: GOOD Additional Instructions: MARILEE CASTELLANO, thank you for letting us take care of you today. Your provider was Iesha Esparza MD and you were treated for CHEST PAIN. The emergency medical care you received today was directed at your acute symptoms. If you were prescribed any medication, please fill it and take as directed. It may take several days for your symptoms to resolve. Return to the Emergency Department if your symptoms worsen, do not improve, or if you have any other problems. Please contact your doctor or call one of the physicians/clinics you have been referred to that are listed on the Patient Visit Information form that is included in your discharge packet. Bring any paperwork you were given at discharge with you along with any medications you are taking to your follow up visit. Our treatment cannot replace ongoing medical care by a primary care provider outside of the emergency department. Thank you for allowing the [facility] team to be part of your care today. If you had an X-Ray or CT scan: A Radiologist will review the ED reading if any change in treatment is needed we will contact you. If you had a blood, urine, or wound culture: It will take several days for the results, if any change in treatment is needed we will contact you. If you had an STI test: It will take 48 hours for the results. Please call after 1 week if you have not heard back. Prescriptions: Albuterol HFA [Ventolin HFA 90 mcg/actuation (8 g)] 2 puff IH [id number] PRN #60 puff PRN Reason: Cough Albuterol 0.083% [Albuterol Sulfate 3 Ml] 3 ml IH Q6 #20 neb RX: Ibuprofen [Motrin Tab] 600 mg PO QID PRN #20 tab PRN Reason: Pain, Moderate (4-7) Instructions: Chest Pain Forms: [facility] ED School/Work Excuse
--- NOTE | 2018-04-17 12:29 | RAD ---
Date of service: 04/17/2018 HISTORY: Chest pain COMPARISON: No prior. TECHNIQUE: Chest PA and lateral FINDINGS: LINES AND TUBES: None. LUNG AND PLEURA: The lungs are well inflated. There is subsegmental atelectasis in the lung bases. No focal consolidation. No pleural effusion or pneumothorax. HEART AND MEDIASTINUM: The heart is not enlarged. No aortic atherosclerotic calcifications present. The hilar and mediastinal contours are within normal limits. SKELETAL STRUCTURES: The bony structures are within normal limits for the patient's age. VISUALIZED UPPER ABDOMEN: Normal. OTHER FINDINGS: None. IMPRESSION: No active pulmonary disease.
[2018-04-17 12:30] LABS: ALBUMIN 3.7 g/dL (3.5-5.0); ALT/SGPT 46 U/L (9-52); AST/SGOT 38 U/L (14-36); BLOOD UREA NITROGEN 17 mg/dl (7-17); CALCIUM 8.7 mg/dL (8.4-10.2); GFR NON-AFRICAN AMERICAN > 60
[2018-04-17 14:03] VITALS: BP 115/71; RESP 16; TEMP 98.2
--- NOTE | 2018-04-17 20:29 | CARD ---
APPROVED REPORT Date of service: 04/17/2018 EKG Measurement Heart [id number] <Conclusion> Normal sinus rhythm Normal ECG
[2018-04-18 07:32] VITALS: PULSE 78; O2SAT 100
== END 2018-04-17 13:45 | disposition home or self-care (01) ==
LOC: H.ER 10:20
DX: R07.89 Other chest pain (principal); J45.909 Unspecified asthma, uncomplicated; G89.29 Other chronic pain; I10 Essential (primary) hypertension; Z79.899 Other long term (current) drug therapy
CPT/HCPCS: 71046; 80053; 84484; 85025; 93005; 96374; 99284; J1885